=== PATIENT | female | born 1945 | race Caucasian/White ===

== ENCOUNTER 2016-11-23 19:08 | Inpatient (IN) | payer MEDICARE, OTHER ==
[~2016-11-23] VITALS: Ht 172.7 cm; Wt 71.7 kg
--- NOTE | 2016-11-23 19:42 | NUR ---
pt chuck from [facility] for medical clearance prior to MHU admission. Pt arrived on a 5150 for danger to self. Pt alert and oriented x 4, calm and cooperative, resting in position of comfort for self. No complaints at this time
--- NOTE | 2016-11-23 19:46 | NUR ---
pt to radiology via [facility]
[2016-11-23] MEDS ORDERED: CARB-93 PO (19:54)
[2016-11-23] MEDS ORDERED: SENN-134 PO (19:54)
[2016-11-23] MEDS ORDERED: MAGN400O6 PO (19:54)
[2016-11-23] MEDS ORDERED: NA P133E RC (19:54)
[2016-11-23] MEDS ORDERED: HYDR-3972 PO ×2 (19:54)
[2016-11-23] MEDS ORDERED: ACET-2154 PO (19:54)
[2016-11-23] MEDS ORDERED: RIVASTIGMINE PO (19:54)
[2016-11-23] MEDS ORDERED: FERR325T6 PO (19:54)
[2016-11-23] MEDS ORDERED: ESCI20TA PO (19:54)
[2016-11-23] MEDS ORDERED: BISA10SU8 RC (19:54)
[2016-11-23] MEDS ORDERED: ERGO2000 PO (19:54)
[2016-11-23] MEDS ORDERED: QUET300T2 PO (19:54)
[2016-11-23] MEDS ORDERED: TRAZ-147 PO (19:54)
--- NOTE | 2016-11-23 20:05 | NUR ---
Pt returned from CT via gurney. UA collected and sent. Labs drawn and sent. Pt resting in position of comfort for self. Calm and cooperative. No complaints at this time.
[2016-11-23 20:40] LABS: *BILIRUBIN,URIN NEGATIVE (NEGATIVE); *BLOOD, URINE NEGATIVE (NEGATIVE); *CLARITY,URINE SLIGHTLY CLOUDY (CLEAR); *COLOR,URINE YELLOW (YELLOW); *KETONES,URINE NEGATIVE (NEGATIVE); *PROTEIN,URINE NEGATIVE (NEGATIVE); *UROBILINOGEN,URINE 0.2 E.U./dl (NORMAL); LEUKOCYTE ESTERASE ,URINE NEGATIVE (NEGATIVE); NITRITE, URINE NEGATIVE (NEGATIVE); UGLUCOSE NEGATIVE (NEGATIVE)
[2016-11-23 20:42] LABS: CARBON DIOXIDE 32 mmol/L (21-32); CHLORIDE 103 mmol/L (98-107); CREATININE 0.8 mg/dL (0.6-1.3); GLUCOSE 98 mg/dL (74-106); POTASSIUM 4.2 mmol/L (3.5-5.1); UREA NITROGEN, BLOOD 20 mg/dL (7-18)
[2016-11-23 20:43] LABS: BASOPHILS # (AUTO) 0.1 K/uL (0.0-8.0); BASOPHILS % (AUTO) 0.7 % (0.0-2.0); EOSINOPHILS # (AUTO) 0.2 K/uL (0.0-0.7); EOSINOPHILS % (AUTO) 2.2 % (0.0-7.0); ETHANOL < 3 MG/DL (0-0); HEMATOCRIT 40.4 % (37-47); HEMOGLOBIN 13.3 G/DL (12.0-16.0); LYMPHOCYTES # (AUTO) 1.7 K/UL (0.8-4.8); LYMPHOCYTES % (AUTO) 22.9 % (20.5-51.5); MEAN CORPUSCULAR HEMOGLOBIN 28.4 UUG (27.0-31.0); MEAN CORPUSCULAR HGB CONC 33 g/dL (32.0-37.0); MEAN CORPUSCULAR VOLUME 86.4 FL (81.0-99.0); MONOCYTES # (AUTO) 0.6 K/UL (0.1-1.30); MONOCYTES % (AUTO) 8.8 % (0.0-11.0); NEUTROPHILS # (AUTO) 4.7 K/UL (1.8-8.9); NEUTROPHILS % (AUTO) 65.4 % (38.5-71.5); PLATELET COUNT (AUTO) 366 K/UL (150-450); RED BLOOD CELL COUNT(AUTO) 4.67 MIL/UL (4.2-5.4); WHITE BLOOD COUNT (AUTO) 7.3 K/UL (4.0-11.2)
[2016-11-23 20:47] LABS: *AMPHETAMINE, URINE NEGATIVE (NEGATIVE); *BARBITURATE, URINE NEGATIVE (NEGATIVE); *CANNABINOID, URINE NEGATIVE (NEGATIVE); *COCCAINE, URINE NEGATIVE (NEGATIVE); *OPIATE, URINE NEGATIVE (NEGATIVE); *PHENCYCLIDINE SCREEN,URINE NEGATIVE (NEGATIVE)
[2016-11-23 20:48] LABS: BACTERIA,URINE FEW /HPF (NONE SEEN); RBC,URINE 0-3 /HPF (0-3); SQUAMOUS EPITHELIAL CELL,UR FEW /HPF (NONE SEEN); WBC,URINE 0-3 /HPF (0-3)
[2016-11-23 20:50] LABS: ALANINE AMINOTRANSFERASE 18 U/L (14-59); ALKALINE PHOSPHATASE 124 U/L (50-136); ASPARTATE AMINOTRANSFERASE 27 U/L (15-37); BILIRUBIN,DIRECT 0.1 mg/dL (0.0-0.2); BILIRUBIN,TOTAL 0.3 mg/dL (0.2-1.0); TOTAL PROTEIN, SERUM 7.6 g/dL (6.4-8.2)
[2016-11-23 20:51] LABS: ACETAMINOPHEN < 2.0 ug/mL (10-30)
[2016-11-23 20:55] LABS: THYROID STIMULATING HORMONE 1.732 mIU/mL (0.358-3.740)
--- NOTE | 2016-11-23 21:24 | NUR ---
Report given to Oxana Puentes on MHU
--- NOTE | 2016-11-23 21:29 | NUR ---
[facility] Surveillance Swab complete per protocol.
--- NOTE | 2016-11-23 22:00 | NUR ---
ADMIT 71 YEARS OLD FEMALE FROM [facility] ON A 5150 HOLD DUE TO DTS. PATIENT TRIED TO HUNG HERSELF AT THE REHAB CENTER THEN SHE CUT HER WRIST WITH A BROKEN GLASS. HOLD STARED ON 11/22/16 AT 1940 AND WILL END ON 11/25/16 AT 1940. PATIENT WAS COOPERATIVE WITH ADMISSION. HOWEVER SHE WAS NOTED ANGRY AND UPSET AT TIME. SHE DENIES THOUGHTS TO HARM SELF AT THIS TIME. SKIN ASSESSMENT, MULTIPLE PURPLE DISCOLORATION NOTED IN LEFT FOREARM AND BOTH LOWER LEGS LATERAL ASPECT. A SUPERFICIAL SCRATCH NOTED OF APPROX 5CM LONG NOTED IN LEFT WRIST ANTERIOR ASPECT. MD WAS NOTIFIED OF ADMISSION.
[2016-11-24 01:07] VITALS: BP 124/65
--- NOTE | 2016-11-24 06:21 | NUR ---
PATIENT CONTINUE ON 1:1 SUPERVISION R/T SI. SHE SLEPT FOR APPROX 7 HRS THROUGH THE NIGHT. ATIVAN 1MG PO PRN WAS GIVEN AT 0227 PER PATIENT REQUEST. NO SI IFEOMA NOTED OR REPORTED AT THIS TIME. Addendum: 11/24/16 at 0650 by MUSA FINN RN patient slept for approx 2hrs through the night,
[2016-11-24 07:30] VITALS: BP 115/56
[2016-11-24 15:27] VITALS: BP 111/57
[2016-11-24 20:15] VITALS: BP 114/66
--- NOTE | 2016-11-25 06:21 | NUR ---
GPS: REMAIN CALM AND COOPERATIVE .SLEPT 06:15 HRS THROUGH THE NIGHT. CONTINUE ON 1:1 SITTER FOR SUPERVISION ALL THE TIMES. NO AGITATION NOTED THIS TIME.
[2016-11-25 07:30] VITALS: BP 111/52
--- NOTE | 2016-11-25 12:21 | NUR ---
Initial discharge instructions: Pt resides at home alone [[address] [place],[phone]].Per pt,she wants to return to the facility she came from.TORRES called pt's alleged DPOACarol [phone] and left a voicemail requesting a call back.TORRES will speak with pt,DPOA,and MD regarding appropriate discharge plans.TORRES will form a safe and proper discharge.
[2016-11-25 16:59] VITALS: BP 111/55
[2016-11-25 20:06] VITALS: BP 126/69
[2016-11-26 07:56] VITALS: BP 109/58
[2016-11-26 16:25] VITALS: BP 114/64
--- NOTE | 2016-11-26 19:30 | NUR ---
RECEIVED PATIENT SITTING COMFORTABLY IN THE CHAIR. NO DISTRESS NOTED. PATIENT IS ALERT AND ORIENTED X2. SKIN INTACT. PATIENT IS ABLE TO AMBULATE WITH 2+ ASSISTANCE. WILL CONTINUE TO MONITOR.
[2016-11-26 20:18] VITALS: BP 110/66
--- NOTE | 2016-11-27 01:50 | NUR ---
GPS: Pt.awake at this time. Confused,paranoid and suspicious. Easily irritable when approached and when being offered a sleeping pill. Claims staff here wrote all these lies to keep her here in the hosp. Re-directed and re-assured. Refused Restoril when offered. Safe environment provided. Will continue to monitor.
--- NOTE | 2016-11-27 06:25 | NUR ---
PATIENT SLEPT ONLY 1 HOUR T/O SHIFT. ANXIOUS, UNCOOPERATIVE. PATIENT TRIED TO GET OUT OF BED MULTIPLE TIMES. SITTER AT BEDSIDE, RE-ORIENTED THE PATIENT PRN. RELAXATION TECHNIQUES APPLIED, NO AVAIL. ALL NEEDS MET. ALL MEDS GIVEN ORDERED. WILL CONTINUE TO MONITOR.
--- NOTE | 2016-11-27 06:30 | NUR ---
NO SUICIDE IDEATIONS NOTED. SAFETY AND COMFORT MEASURES MAINTAINED T/O SHIFT.
[2016-11-27 07:30] VITALS: BP 107/55
--- NOTE | 2016-11-27 09:02 | NUR ---
RECEIVED PATIENT RESTING IN THE BED WITH A ONE ON ONE SITTER AT THE BEDSIDE COMPLIANT WITH MEDICATIONS AND COOPERATIVE WITH CARE WILL CONTINUE TO PROVIDE SAFE AND THERAPEUTIC ENVIRONMENT AT ALL TIMES
[2016-11-27 16:00] VITALS: BP 93/55
--- NOTE | 2016-11-27 17:30 | NUR ---
UP ON THE CHAIR SEATED IN THE TV ROOM AND TOLERATED WELL MADE COMFORTABLE NOT IN DISTRESS AT THIS TIME
[2016-11-27 20:47] VITALS: BP 120/66
--- NOTE | 2016-11-27 23:14 | NUR ---
PATIENT RECEIVED IN BED AWAKE. PATIENT REMAINS WITH A 1:1 SITTER FOR SAFETY. PATIENT REMAINS WITH FLAT AFFECT, ISOLATIVE WITHDRAWN TO ROOM. MINIMAL INTERACTION WITH STAFF. PATIENT DENIES SI WILL CONTINUE TO MONITOR. PATIENT COMPLAINT WITH MEDICATION. BED IN LOWEST POSITION, BED LOCKED, AND BED ALARM ON WHILE IN BED.
[2016-11-28 07:30] VITALS: BP 103/53
--- NOTE | 2016-11-28 11:00 | NUR ---
COMPLIANT WITH MEDICATIONS AND CARE.CONTINUE TO LOOK DEPRESSED QUIET LOW ENERGY COMPLIANT WITH MEDICATIONS AND CARE WILL CONTINUE TO PROVIDE SAFE AND THERAPEUTIC ENVIRONMENT AT THIS TIME
[2016-11-28 15:00] VITALS: BP 103/55
--- NOTE | 2016-11-28 17:00 | NUR ---
CONTINENT AND INCONTINENT AND CONTINENT AT TIMES ASSISTED NEEDED COMPLIANT WITH MEDICATIONS AND CARE.
[2016-11-28 20:42] VITALS: BP 105/62
[2016-11-29 08:30] VITALS: BP 102/57
[2016-11-29 16:25] VITALS: BP 99/59
[2016-11-29 20:54] VITALS: BP 115/68
[2016-11-30 07:30] VITALS: BP 117/97
[2016-11-30 15:00] VITALS: BP 97/51
[2016-11-30 20:00] VITALS: BP 128/60
--- NOTE | 2016-11-30 21:45 | NUR ---
PATIENT RECEIVED IN BED AWAKE. PATIENT REMAINS WITH A 1:1 SITTER FOR SAFETY. PATIENT REMAINS WITH FLAT AFFECT, ISOLATIVE WITHDRAWN TO ROOM. MINIMAL INTERACTION WITH STAFF. PATIENT DENIES SI WILL CONTINUE TO MONITOR.
[2016-12-01 08:04] VITALS: BP 102/53
[2016-12-01 16:54] VITALS: BP 116/61
[2016-12-01 20:27] VITALS: BP 111/61
[2016-12-02 08:45] VITALS: BP 109/58
--- NOTE | 2016-12-02 17:00 | NUR ---
PATIENT REMAINS COOPERATIVE AND COMPLIANT BUT LOOKS DEPRESSED AND WITHDRAWN RESPONDS WHEN SPOKEN TO IN A LOW TONE OF VOICE.REMAIN ON ONE ONE SITTER FOR SAFETY WILL CONTINUE TO PROVIDE SAFE AND THERAPEUTIC ENVIRONMENT AT ALL TIMES.
[2016-12-02 17:07] VITALS: BP 127/68
[2016-12-02 20:22] VITALS: BP 128/66
--- NOTE | 2016-12-03 06:53 | NUR ---
PATIENT SLEPT FOR APPROX 5.45HRS THROUGH THE NIGHT, NO SI WAS NOTED OR REPORTED DURING THE SHIFT. SHE CONTINUE ON 1:1 SUPERVISION FOR SAFETY PRECAUTION.
[2016-12-03 07:30] VITALS: BP 97/56
--- NOTE | 2016-12-03 10:00 | NUR ---
PATIENT SEEN AND EXAMINED BY DR NOWAK WITH NO NEW ORDERS PER THE ASSIGNED SITTER PATIENT HAD AN INCIDENT WHERE SHE GOT FRUSTRATED AND STARTED BANGING WITH BOTH HANDS ON THE TABLE IT WAS BRIEF AND WAS REDIRECTABL MD AWARE WITH NO NEW ORDERS AT THIS TIME.
[2016-12-03 16:20] VITALS: BP 92/51
--- NOTE | 2016-12-03 18:52 | NUR ---
DR CABELLO HERE TO SEE PATIENT AND AWARE OF ONE EPISODE THIS MORNING WHERE PATIENT STATED THAT SHE SAW PEOPLE OUTSIDE THE WINDOW AND THAT WHY SHE BANGED ON THE TABLE AND THE WINDOW AND THEN THEY WENT AWAY.PATIENT DENIES AUDITORY HALLUCINATIONS AT THIS TIME.
[2016-12-03 20:00] VITALS: BP 98/61
--- NOTE | 2016-12-04 06:41 | NUR ---
Patient slept for approx. 5.45 hrs through the night. she was noted restless through out the night. Noted combative, mocking staff and attempting to slap nursing staff while providing care. Temazepan 7.5mg PO PRN for insomnia was offered; however, pt refused. She had a shower this morning and noted compliant with care
[2016-12-04 07:30] VITALS: BP 101/56
--- NOTE | 2016-12-04 09:00 | NUR ---
Pt awake AOx1. Observed sitting in irina chair. calm and cooperative at this time, compliant with am medication. remains confused. no aggressive or combative behavior noted. will continue to monitor for safety.
--- NOTE | 2016-12-04 10:19 | NUR ---
DC Note: Patient will be discharged to [facility] [[address] [place], [place] [id number]; [phone]] via ambulance at 12:00 pm. Spoke with Verna at the facility who stated they would accept the patient today. Patient is assigned to room 124A. Called patient's next of kin, Carol Beltran [phone] and left a voicemail with discharge plans. Per pt's request, SW contacted Sarahi (Friend from previous facility) [phone] and provided discharge plans. Patient is aware and agreeable with discharge plans as well. Patient will follow-up with (Psychiatrist) and (Molecular Pathologist) at the facility.
--- NOTE | 2016-12-04 12:35 | NUR ---
Pt discharging to [facility] today in [place] via ambulance. Pt will continue psychiatric care with Dr Araya and registered respiratory therapist Dr Poole. Pt AOx2 confused and disoriented, educated about discharge/aftercare, pt is agreeable. Pt is stable at this time, vital signs wnl. No acute distress noted. Per social service assistant noted pt next of kin Carol Beltran aware of pt discharge. Belongings will go with patient. Report given to nurse Jordan at [place].
--- NOTE | 2016-12-04 13:49 | NUR ---
pt picked up buy ambulance, calm and cooperative. Belongings with patient. No acute distress noted. Pt off unit at 1332.
== END 2016-12-04 13:35 | DRG 885 ==
LOC: ER 19:08 → GPS 21:42
PROVIDERS: ADMIT Psychiatry & Neurology Psychiatry; ATTEND Internal Medicine
DX: F33.3 Major depressive disorder, recurrent, severe with psychotic symptoms (principal); G20 Parkinson's disease; E11.9 Type 2 diabetes mellitus without complications; E78.5 Hyperlipidemia, unspecified; Z79.899 Other long term (current) drug therapy; Z91.5 Personal history of self-harm
CPT/HCPCS: 36415; 70030-TC; 70450; 71010; 80307; 84443; 85025; 85730; 93005; 97110; 97116; 97530; A4663; G0480; G0480-TC